=== PATIENT | male | born 1965 | race African-American/Black ===

== ENCOUNTER 2016-11-11 23:35 | Emergency (ER) | payer BC ==
[2016-11-12] MEDS ORDERED: CLONIDINE HCL 0.1 MG TABLET PO ONE (03:29)
[2016-11-12] MEDS ORDERED: METFORMIN HCL 500 MG TABLET PO ONE (03:29)
[2016-11-12] MEDS ORDERED: ACETAMINOPHEN 325 MG TABLET PO ONE (03:35)
--- NOTE | 2016-11-12 03:35 | ER Document Report ---
ED Blood Pressure Problem - General Chief Complaint: High Blood Pressure Stated Complaint: HEAD PAIN Mode of Arrival: Ambulatory Information source: Patient Notes: Patient is a 51-year-old -[place] male with a history of hypertension and diabetes who presents to the ER today for headache today with high blood pressure and elevated sugar readings. Patient states that he used to be on metformin which controlled his sugar very well but his recent doctor took him off and placed him on glipizide instead which is not controlling it as well. He states that he is only on amlodipine for blood pressure which also does not control his blood pressure very well as he usually has readings on a daily basis in the 140s systolically. He denies any history of heart attack or stroke. He denies any chest pain or shortness of breath, nausea, vomiting, blurred vision, weakness or numbness on one side or the other. TRAVEL OUTSIDE OF THE [place] IN LAST 30 DAYS: No - Related Data Allergies/Adverse Reactions: Shellfish * [Shellfish] Allergy (Verified 08/12/16 10:52) Seafood Allergy (Severe, Uncoded 08/12/16 10:52) Anaphylaxis Past Medical History - General Information source: Patient - Social History Smoking Status: Never Smoker Frequency of alcohol use: None Drug Abuse: None Family History: DM, Hyperlipidemia, Hypertension Patient has suicidal ideation: No Patient has homicidal ideation: No - Past Medical History Cardiac Medical History: Reports: Hx Congestive Heart Failure, Hx Hypercholesterolemia, Hx Hypertension Pulmonary Medical History: Reports: Hx Asthma Endocrine Medical History: Reports: Hx Diabetes Mellitus Type 2 Renal/ Medical History: Denies: Hx Peritoneal Dialysis - Immunizations Immunizations up to date: Yes Hx Diphtheria, Pertussis, Tetanus Vaccination: No Review of Systems - Review of Systems Constitutional: No symptoms reported EENT: No symptoms reported Cardiovascular: See HPI Respiratory: No symptoms reported Gastrointestinal: No symptoms reported Genitourinary: No symptoms reported Male Genitourinary: No symptoms reported Musculoskeletal: No symptoms reported Skin: No symptoms reported Hematologic/Lymphatic: No symptoms reported Neurological/Psychological: See HPI Physical Exam - Vital signs Vitals: Temp Pulse Resp BP Pulse Ox 97.8 F 68 18 162/114 H 97 11/12/16 00:09 11/12/16 00:09 11/12/16 00:09 11/12/16 00:09 11/12/16 00:09 - Notes Notes: PHYSICAL EXAMINATION: GENERAL: Well-appearing and in no acute distress. HEAD: Atraumatic, normocephalic. EYES: Pupils equal round and reactive to light, extraocular movements intact, sclera anicteric, conjunctiva are normal. NECK: Normal range of motion, supple without lymphadenopathy LUNGS: CTAB and equal. No wheezes rales or rhonchi. HEART: Regular rate and rhythm without murmurs ABDOMEN: Soft, no tenderness. No guarding, no rebound BACK: no vertebral tenderness, normal ROM GI/: no CVA tenderness EXTREMITIES: Normal range of motion, no pitting edema. No cyanosis. NEUROLOGICAL: Cranial nerves grossly intact. Normal sensory/motor exams. Good and equal strength bilaterally, Kernig and Brudzinski's signs negative, Romberg' s test normal, normal heel to enciso testing PSYCH: Normal mood, normal affect. SKIN: Warm, Dry, normal turgor, no rashes or lesions noted Course - Re-evaluation Re-evalutation: 11/12/16 03:32 I did give patient a dose of oral blood pressure medication here as well as a dose of metformin. He will has an appointment in 2 days with a new primary care provider. I will provide him with a couple days of metformin as well as a new blood pressure medication and have him follow-up with his primary care provider to decide if they want to continue it or not. He looks well and has a normal neurological exam. - Vital Signs Vital signs: Temp Pulse Resp BP Pulse Ox 97.8 F 69 18 154/99 H 97 11/12/16 00:09 11/12/16 00:19 11/12/16 00:09 11/12/16 00:19 11/12/16 00:09 - Laboratory Laboratory results interpreted by me: 11/12/16 01:18 POC Glucose 284 H Discharge - Discharge Clinical Impression: Headache Qualifiers: Headache type: unspecified Headache chronicity pattern: acute headache Intractability: not intractable Qualified Code(s): R51 - Headache Hypertension Qualifiers: Hypertension type: essential hypertension Qualified Code(s): I10 - Essential ( primary) hypertension Diabetes type 2, uncontrolled Qualifiers: Diabetes mellitus complication status: with unspecified complications Diabetes mellitus assisted insulin use: without assisted use Qualified Code(s): E11.8 - Type 2 diabetes mellitus with unspecified complications; E11.65 - Type 2 diabetes mellitus with hyperglycemia Condition: Stable Disposition: HOME, SELF-CARE Instructions: High Blood Pressure, Requiring Treatment ([facility]), Clonidine ( [facility]) ([facility]), Hydrochlorothiazide ([facility]) Additional Instructions: Return immediately for any new or worsening symptoms. Follow up with primary care provider, keep your appointment. Prescriptions: Hydrochlorothiazide 12.5 mg PO BID #14 tablet Metformin HCl 500 mg PO BID #14 tablet Forms: Return to Work
[2016-11-12 04:58] VITALS: BP 141/85
== END 2016-11-12 05:08 | disposition home or self-care (01) ==
LOC: ER 23:35
DX: R51 Headache (principal); I10 Essential (primary) hypertension; E11.8 Type 2 diabetes mellitus with unspecified complications; E11.65 Type 2 diabetes mellitus with hyperglycemia
CPT/HCPCS: 82962; 99283